=== PATIENT | female | born 1950 | race Caucasian/White ===

== ENCOUNTER 2017-06-09 17:18 | Emergency (ER) | payer MEDICARE, MEDICAID ==
[~2017-06-09] VITALS: Ht 162.6 cm; Wt 77.7 kg
[~2017-06-09 17:18] MED LIST: ASPI-1264 PO; PER10325T PO; WALKERFR
[2017-06-09] MEDS ORDERED: HYDROcodone/acetaminophen 10/325mg tab PO ONE (18:15)
[2017-06-09 18:30] VITALS: BP 145/86
== END 2017-06-09 18:31 | disposition home or self-care (01) ==
LOC: ER 17:18
DX: M25.511 Pain in right shoulder (principal); G89.29 Other chronic pain; Z98.890 Other specified postprocedural states; Z79.82 Long term (current) use of aspirin
CPT/HCPCS: 99284; A4565

== ENCOUNTER 2019-01-23 20:19 | Emergency (ER) | payer MEDICARE, MEDICAID ==
[~2019-01-23] VITALS: Ht 162.6 cm; Wt 78.2 kg
[~2019-01-23 20:19] MED LIST changes: -ASPI-1264 PO; +CELE-193 PO; -PER10325T PO; -WALKERFR
[2019-01-23 20:34] VITALS: BP 138/89
[2019-01-23] MEDS ORDERED: HYDR-4384 PO (21:49)
[2019-01-23] MEDS ORDERED: ketorolac trometh inj. 60 MG/2 ML VIAL IM ONE (21:50)
== END 2019-01-23 22:07 | disposition home or self-care (01) ==
LOC: ER 20:20
DX: M25.561 Pain in right knee (principal); G89.29 Other chronic pain; Z98.890 Other specified postprocedural states; Z79.899 Other long term (current) drug therapy; Z96.651 Presence of right artificial knee joint; W22.8XXA Striking against or struck by other objects, initial encounter; Y93.89 Activity, other specified; Y92.89 Other specified places as the place of occurrence of the external cause; Y99.8 Other external cause status
CPT/HCPCS: 73564; 96372; 99283; J1885

== ENCOUNTER 2019-09-24 13:18 | Emergency (ER) | payer MEDICARE, MEDICAID ==
[~2019-09-24] VITALS: Ht 162.6 cm; Wt 77.0 kg
[2019-09-24] MEDS ORDERED: HYDROcodone/acetaminophen 5mg/325mg tablet PO ONE (14:45)
[2019-09-24 15:12] VITALS: BP 142/76
== END 2019-09-24 15:14 | disposition home or self-care (01) ==
LOC: ER 13:19
DX: S00.11XA Contusion of right eyelid and periocular area, initial encounter (principal); R51 Headache; M25.561 Pain in right knee; M25.461 Effusion, right knee; M54.5 Low back pain; Z79.899 Other long term (current) drug therapy; Z98.890 Other specified postprocedural states; W01.198A Fall on same level from slipping, tripping and stumbling with subsequent striking against other object, initial encounter; Y92.017 Garden or yard in single-family (private) house as the place of occurrence of the external cause; Y93.89 Activity, other specified; Y99.8 Other external cause status
CPT/HCPCS: 29505; 70450; 70487; 72125; 73502; 73560; 99285

== ENCOUNTER 2019-10-24 23:39 | Emergency (ER) | payer MEDICARE, MEDICAID ==
[~2019-10-24] VITALS: Ht 162.6 cm; Wt 80.9 kg
[2019-10-25] MEDS ORDERED: normal saline 1000ml 1,000 ML IV ONE (00:36)
[2019-10-25] MEDS ORDERED: normal saline 1000ML IV soln IVB ONE (00:40)
[2019-10-25 01:16] LABS: BASOPHILS % (AUTO) 0.8 % (0-1); EOSINOPHILS # (AUTO) 0.1 X10'3 (0-0.9); EOSINOPHILS % (AUTO) 2.1 % (0-6); HEMATOCRIT 34.5 % (35.0-45.0); HEMOGLOBIN 11.7 g/dl (12.0-16.0); LYMPHOCYTES # (AUTO) 1.7 X10'3 (1.1-4.8); LYMPHOCYTES % (AUTO) 31.4 % (21-51); MEAN CORPUSCULAR HEMOGLOBIN 29.6 PG (27.0-31.0); MEAN CORPUSCULAR HGB CONC 33.9 g/dL (33.0-36.5); MEAN CORPUSCULAR VOLUME 87.3 FL (78-98); MEAN PLATELET VOLUME 6.5 FL (7.4-10.4); MONOCYTES # (AUTO) 0.6 X10'3 (0-0.9); MONOCYTES % (AUTO) 10.6 % (2-12); NEUTROPHILS % (AUTO) 55.1 % (42-75); PLATELET COUNT 270 X10'3 (140-440); RED BLOOD COUNT 3.95 X10'6 (4.20-5.60); RED CELL DISTRIBUTION WIDTH 14.1 % (11.5-14.5); WHITE BLOOD COUNT 5.4 X10'3 (4.5-11.0)
[2019-10-25 01:31] LABS: ALANINE AMINOTRANSFERASE 18 U/L (12-78); ALBUMIN 3.7 G/DL (3.4-5.0); ALBUMIN/GLOBULIN RATIO 1.2 (1.1-1.5); ALKALINE PHOSPHATASE 89 IU/L (46-116); ANION GAP 7 (8-16); ASPARTATE AMINO TRANSFERASE 17 U/L (10-37); BILIRUBIN,TOTAL 0.2 MG/DL (0.1-1.0); BLOOD UREA NITROGEN 24 MG/DL (7-18); BUN/CREATININE RATIO 22.2 (6.6-38.0); CALCIUM 8.5 MG/DL (8.5-10.1); CHLORIDE 110 MMOL/L (99-107); CREATININE 1.08 MG/DL (0.40-0.90); GLUCOSE 105 MG/DL (70-104); POTASSIUM 3.4 MMOL/L (3.5-5.1); SODIUM 145 MMOL/L (135-145); TOTAL CARBON DIOXIDE 28.4 MMOL/L (24-32); TOTAL PROTEIN 6.9 G/DL (6.4-8.2); eGFR 50 ML/MIN
[2019-10-25] MEDS ORDERED: ciprofloxacin 250mg tablet PO ONE (02:05)
[2019-10-25] MEDS ORDERED: diphenoxylate/atropine tablet (Lomotil) PO ONE (02:45)
[2019-10-25 02:51] VITALS: BP 163/74
== END 2019-10-25 02:56 | disposition home or self-care (01) ==
LOC: ER 23:40
DX: R19.7 Diarrhea, unspecified (principal); R10.30 Lower abdominal pain, unspecified; R11.0 Nausea; G89.29 Other chronic pain; Z72.89 Other problems related to lifestyle; Z98.890 Other specified postprocedural states
CPT/HCPCS: 36415; 80053; 85025; 96360; 96361; 99283; J7030

== ENCOUNTER 2020-09-19 10:24 | Emergency (ER) | payer MEDICARE, MEDICAID ==
[~2020-09-19] VITALS: Ht 162.6 cm; Wt 71.0 kg
[~2020-09-19 10:24] MED LIST changes: +AMOX500C4 PO; +ASPI-1 PO; -CELE-193 PO; +IBUP-24 PO; +TRAM50TA2 PO; +TYL650S PO
--- NOTE | 2020-09-19 11:46 | NUR ---
c/o pain in left lower abdomen that started after doing ching at home on friday. pain is constant and flares up intermittently. pain 8/10 at present.
[2020-09-19 12:19] LABS: BASOPHILS % (AUTO) 0.3 % (0-1); EOSINOPHILS % (AUTO) 0.3 % (0-6); HEMATOCRIT 35.3 % (35.0-45.0); HEMOGLOBIN 11.9 g/dl (12.0-16.0); LYMPHOCYTES # (AUTO) 1.2 X10'3 (1.1-4.8); LYMPHOCYTES % (AUTO) 11.2 % (21-51); MEAN CORPUSCULAR HEMOGLOBIN 28.9 PG (27.0-31.0); MEAN CORPUSCULAR HGB CONC 33.7 g/dL (33.0-36.5); MEAN CORPUSCULAR VOLUME 85.8 FL (78-98); MONOCYTES # (AUTO) 0.8 X10'3 (0-0.9); MONOCYTES % (AUTO) 7.6 % (2-12); NEUTROPHILS # (AUTO) 8.7 X10'3 (1.8-7.7); NEUTROPHILS % (AUTO) 80.6 % (42-75); PLATELET COUNT 297 X10'3 (140-440); RED BLOOD COUNT 4.12 X10'6 (4.20-5.60); WHITE BLOOD COUNT 10.8 X10'3 (4.5-11.0)
[2020-09-19 12:33] LABS: ALANINE AMINOTRANSFERASE 24 U/L (12-78); ALBUMIN 3.8 G/DL (3.4-5.0); ALBUMIN/GLOBULIN RATIO 1.1 (1.1-1.5); ALKALINE PHOSPHATASE 96 IU/L (46-116); ANION GAP 11 (8-16); ASPARTATE AMINO TRANSFERASE 18 U/L (10-37); BLOOD UREA NITROGEN 14 MG/DL (7-18); BUN/CREATININE RATIO 15.9 (6.6-38.0); CHLORIDE 105 MMOL/L (99-107); CREATININE 0.88 MG/DL (0.40-0.90); GLUCOSE 97 MG/DL (70-104); LIPASE 101 U/L (73-393); POTASSIUM 3.5 MMOL/L (3.5-5.1); SODIUM 143 MMOL/L (135-145); TOTAL CARBON DIOXIDE 26.7 MMOL/L (24-32); TOTAL PROTEIN 7.4 G/DL (6.4-8.2); eGFR 64 ML/MIN
[2020-09-19 12:54] LABS: CLARITY,URINE CLEAR (Clear); COLOR,URINE YELLOW (Yellow); GLUCOSE, URINE NEGATIVE (Neg); KETONES,URINE TRACE mg/dl (Neg); LEUKOCYTE ESTERASE ,URINE NEGATIVE (Neg); NITRITES, URINE NEGATIVE (Neg); OCCULT BLOOD,URINE NEGATIVE (Neg); PROTEIN,URINE TRACE mg/dl (Neg); UROBILINOGEN,URINE 0.2 E.U/dL (0.2-1.0)
[2020-09-19 12:59] LABS: UA COLLECTION TYPE CLN CATCH MIDSTREAM
[2020-09-19 13:00] LABS: RBC,URINE NONE SEEN /HPF (0-2)
[2020-09-19 13:01] LABS: BACTERIA,URINE FEW /HPF (Neg); MUCUS STRANDS FEW /LPF (Neg); SQUAMOUS EPITHELIAL CELL,UR FEW /LPF (FEW)
[2020-09-19] MEDS ORDERED: iohexol 300mg/ml 100ml inj. ONE (13:01)
[2020-09-19] MEDS ORDERED: ondansetron/PF 4mg/2ml inj IV ONE (13:45)
[2020-09-19] MEDS ORDERED: morphine 4 MG/ML inj SYRINge IV ONE (13:45)
[2020-09-19] MEDS ORDERED: AMOX-422 PO (13:46)
[2020-09-19] MEDS ORDERED: ACET-1025 PO (13:46)
[2020-09-19] MEDS ORDERED: METR-159 PO (13:46)
[2020-09-19 14:28] VITALS: BP 147/83
== END 2020-09-19 14:31 | disposition home or self-care (01) ==
LOC: ER 10:24
DX: K57.92 Diverticulitis of intestine, part unspecified, without perforation or abscess without bleeding (principal); N39.0 Urinary tract infection, site not specified; G89.29 Other chronic pain; Z79.2 Long term (current) use of antibiotics; Z79.899 Other long term (current) drug therapy; Z98.890 Other specified postprocedural states; Z72.89 Other problems related to lifestyle
CPT/HCPCS: 36415; 74177; 80053; 81001; 83605; 83690; 85025; 87088; 96374; 96375; 99285; J2270; J2405; Q9967

== ENCOUNTER 2020-12-02 06:57 | Emergency (ER) | payer MEDICARE, MEDICAID ==
[~2020-12-02] VITALS: Ht 162.6 cm; Wt 80.9 kg
[2020-12-02 07:10] VITALS: BP 154/84
[2020-12-02] MEDS ORDERED: ketorolac tromethamine 15mg/ml inj. IM ONE (09:10)
== END 2020-12-02 11:07 | disposition home or self-care (01) ==
LOC: ER 06:58
DX: M25.561 Pain in right knee (principal); M25.531 Pain in right wrist; M25.552 Pain in left hip; G89.29 Other chronic pain; Z98.890 Other specified postprocedural states; Z72.89 Other problems related to lifestyle; Z79.2 Long term (current) use of antibiotics; Z79.82 Long term (current) use of aspirin; Z79.899 Other long term (current) drug therapy; W19.XXXA Unspecified fall, initial encounter; Y93.89 Activity, other specified; Y92.89 Other specified places as the place of occurrence of the external cause; Y99.8 Other external cause status
CPT/HCPCS: 29125; 73110; 73502; 73564; 96372; 99284; J1885

== ENCOUNTER 2021-03-27 12:44 | Emergency (ER) | payer MEDICARE, MEDICAID ==
[~2021-03-27] VITALS: Ht 162.6 cm; Wt 81.0 kg
[2021-03-27 13:19] LABS: BASOPHILS # (AUTO) 0.1 X10'3 (0-0.2); BASOPHILS % (AUTO) 0.9 % (0-1); EOSINOPHILS # (AUTO) 0.1 X10'3 (0-0.9); EOSINOPHILS % (AUTO) 1.2 % (0-6); HEMATOCRIT 38.9 % (35.0-45.0); HEMOGLOBIN 13.1 g/dl (12.0-16.0); LYMPHOCYTES # (AUTO) 1.3 X10'3 (1.1-4.8); LYMPHOCYTES % (AUTO) 13.5 % (21-51); MEAN CORPUSCULAR HEMOGLOBIN 28.6 PG (27.0-31.0); MEAN CORPUSCULAR HGB CONC 33.6 g/dL (33.0-36.5); MEAN CORPUSCULAR VOLUME 85.1 FL (78-98); MEAN PLATELET VOLUME 6.1 FL (7.4-10.4); MONOCYTES # (AUTO) 0.5 X10'3 (0-0.9); MONOCYTES % (AUTO) 5.6 % (2-12); NEUTROPHILS # (AUTO) 7.5 X10'3 (1.8-7.7); NEUTROPHILS % (AUTO) 78.8 % (42-75); PLATELET COUNT 374 X10'3 (140-440); RED BLOOD COUNT 4.57 X10'6 (4.20-5.60); RED CELL DISTRIBUTION WIDTH 13.6 % (11.5-14.5); WHITE BLOOD COUNT 9.5 X10'3 (4.5-11.0)
[2021-03-27 13:34] LABS: ALANINE AMINOTRANSFERASE 28 U/L (12-78); ALKALINE PHOSPHATASE 122 IU/L (46-116); ANION GAP 11 (8-16); ASPARTATE AMINO TRANSFERASE 21 U/L (10-37); BILIRUBIN,TOTAL 0.5 MG/DL (0.1-1.0); BLOOD UREA NITROGEN 10 MG/DL (7-18); BUN/CREATININE RATIO 10.2 (6.6-38.0); CALCIUM 9.2 MG/DL (8.5-10.1); CHLORIDE 104 MMOL/L (99-107); CREATININE 0.98 MG/DL (0.40-0.90); GLUCOSE 125 MG/DL (70-104); POTASSIUM 3.8 MMOL/L (3.5-5.1); SODIUM 142 MMOL/L (135-145); TOTAL CARBON DIOXIDE 27.4 MMOL/L (24-32); eGFR 56 ML/MIN
--- NOTE | 2021-03-27 19:51 | NUR ---
PT ROOMED IN FAST TRACK 3
--- NOTE | 2021-03-27 19:59 | NUR ---
PT REPORTS HER CHEST TIGHTNESS HAS IMPROVED. BELIEVES HER CHEST PAIN HAS MORE TO DO WITH INCREASED COUGH SHE HAS HAD RECENTLY.
--- NOTE | 2021-03-27 20:33 | NUR ---
ROUNDED ON PT. PT HAS NO COMPLAINTS. SHE AMBULATED TO RESTROOM
--- NOTE | 2021-03-27 21:47 | NUR ---
ROUNDED ON PT. NOTES HEADACHE BUT NO OTHER COMPLAINTS AT PRESENT.
[2021-03-27 21:50] LABS: D-DIMER 0.53 MG/L FEU (0-0.50)
--- NOTE | 2021-03-27 22:04 | NUR ---
ROUNDED ON PT. NO OTHER COMPLAINTS AT PRESENT.
[2021-03-27] MEDS ORDERED: BENZ-38 PO (22:13)
[2021-03-27] MEDS ORDERED: AZIT-103 PO (22:13)
[2021-03-27 22:51] VITALS: BP 168/88
== END 2021-03-27 22:55 | disposition home or self-care (01) ==
LOC: ER 12:45
DX: J06.9 Acute upper respiratory infection, unspecified (principal); Z20.822 Contact with and (suspected) exposure to COVID-19; G89.29 Other chronic pain; Z72.89 Other problems related to lifestyle; Z79.2 Long term (current) use of antibiotics; Z79.899 Other long term (current) drug therapy; Z86.16 Personal history of COVID-19; Z79.82 Long term (current) use of aspirin
CPT/HCPCS: 36415; 71045; 80053; 83880; 84484; 85025; 85379; 87635; 93005; 99285; C9803

== ENCOUNTER 2021-11-04 09:22 | Emergency (ER) | payer MEDICARE, MEDICAID ==
[~2021-11-04] VITALS: Ht 162.6 cm; Wt 85.0 kg
[2021-11-04 09:34] VITALS: BP 153/81
[2021-11-04] MEDS ORDERED: fluconazole 150mg tablet PO ONE (10:30)
[2021-11-04] MEDS ORDERED: ondansetron 4mg rapidly disintigrating tab PO ONE (10:30)
[2021-11-04] MEDS ORDERED: CLOT15CR10 TOP (12:07)
== END 2021-11-04 12:21 | disposition home or self-care (01) ==
LOC: ER 09:23
DX: B37.2 Candidiasis of skin and nail (principal); Z20.822 Contact with and (suspected) exposure to COVID-19; G89.29 Other chronic pain; Z79.899 Other long term (current) drug therapy; Z79.82 Long term (current) use of aspirin
CPT/HCPCS: 87502; 87503; 87635; 99283; C9803; 99282

== ENCOUNTER 2022-03-05 12:39 | Emergency (ER) | payer MEDICARE, MEDICAID ==
[~2022-03-05] VITALS: Ht 162.6 cm; Wt 78.2 kg
[~2022-03-05 12:39] MED LIST changes: +CLOT15CR10 TOP
[2022-03-05 13:57] VITALS: BP 157/84
[2022-03-05] MEDS ORDERED: ipratropium/albuterol 3ml nebule NEB ONE (15:10)
[2022-03-05] MEDS ORDERED: PRED20TA PO (16:07)
[2022-03-05] MEDS ORDERED: ALBU6.7H14 INH (16:07)
[2022-03-05] MEDS ORDERED: BENZ-38 PO (16:07)
== END 2022-03-05 16:58 | disposition home or self-care (01) ==
LOC: ER 12:40
DX: J06.9 Acute upper respiratory infection, unspecified (principal); Z20.822 Contact with and (suspected) exposure to COVID-19; G89.29 Other chronic pain
CPT/HCPCS: 36415; 71045; 87635; 94640; 99284; C9803; 94760

== ENCOUNTER 2024-01-28 14:48 | Emergency (ER) | payer MEDICARE, MEDICAID ==
[~2024-01-28] VITALS: Ht 162.6 cm; Wt 74.0 kg
[~2024-01-28 14:48] MED LIST changes: +ALBU6.7H14 INH
[2024-01-28 16:07] VITALS: BP 149/90; PULSE 68; RESP 18; TEMP 98.5; O2SAT 98
== END 2024-01-28 16:08 | disposition home or self-care (01) ==
LOC: ER 14:48
DX: S70.02XA Contusion of left hip, initial encounter (principal); S60.222A Contusion of left hand, initial encounter; G89.29 Other chronic pain; Z79.899 Other long term (current) drug therapy; Z79.82 Long term (current) use of aspirin; Z72.89 Other problems related to lifestyle; Z98.890 Other specified postprocedural states; W18.39XA Other fall on same level, initial encounter; Y93.89 Activity, other specified; Y92.89 Other specified places as the place of occurrence of the external cause; Y99.8 Other external cause status
CPT/HCPCS: 73130; 73502; 99284

== ENCOUNTER 2024-11-22 11:11 | Emergency (ER) | payer MEDICARE, MEDICAID ==
[~2024-11-22] VITALS: Ht 162.6 cm; Wt 68.9 kg
[2024-11-22 11:20] VITALS: TEMP 97.8
--- NOTE | 2024-11-22 15:41 | Physician Documentation ---
History of Present Illness ~ Chief Complaint: Headache Stated Complaint: PAIN IN HEAD/DIZZINESS X1 MONTH Time Seen by MD: 15:23 Primary Medical Doctor: Maritza Kolb HPI 74-year-old female presenting for a headache that has been gradually worsening for the past month. Patient states that the headache is mainly over the top of her head but radiates to the rest of her head as well. Additionally she states that she has noticed some increased fogginess in her thinking and has been confused at times. She reports that her vision has been slightly blurry and this will wax and wane. The headache as mentioned has been constant but will fluctuate in intensity. Currently she rates it at about a 5/10 but states that it does get as bad as a 9/10 on intensity. She reports that she also has some stiffness in her neck and some unsteadiness on her feet. Denies any chest pain, shortness of breath or any other associated symptoms. Medication Reconciliation Allergies: Coded Allergies: No Known Allergies (Unverified , 01/28/24) Scheduled Albuterol Sulfate (Proventil Hfa), 2 PUFFS INH Q6H Amoxicillin (Amoxicillin), 1 TAB PO TID, (Reported) Aspirin (Aspirin), 325 MG PO DAILY Clotrimazole (Clotrimazole), 1 APPLIC TOP Q8H Tramadol HCl (Tramadol HCl), 2 TABLET PO HS, (Reported) Scheduled PRN Acetaminophen (Tylenol), 650 MG PO TID PRN for pain, (Reported) Ibuprofen (Advil), 800 MG PO TIDWM PRN for pain, (Reported) Past Medical History Past Medical History: Diverticulosis, *MUSCULOSKELETAL*, Chronic Pain, *INFECTIOUS DZ*, *CANCER* Past Surgical History: orthopedic surgeries Other Past Surgical History: total right knee Alcohol Use: Occasionally Drug Use: none Lives with: Family Lives In: Home Occupation: retired Physical Exam Vital Signs: Temperature: 97.8, Source: Temporal, Heart Rate: 60, Respiratory Rate: 16, BP: 162/82, Pulse Oximetry: 96, Weight: 68.900 Oxygen Flow Rate: 0 Physical Exam I have reviewed the triage vitals. CONST: Well developed and well nourished. In no acute distress HENT: Head Atraumatic EYES: Pupils are equal, round and reactive to light. Normal conjunctiva NECK: Normal range of motion. Supple. CARDIO: Normal rate and regular rhythm. No murmurs, rubs, or gallops. S1, S2. PULM/CHEST: No respiratory distress. Lungs clear to auscultation. No wheeze ABD: Soft and nontender. Nondistended. Bowel sounds normal. No guarding. : Exam deferred MSK: No edema. No deformity. NEURO: Alert and oriented to person, place and time. Moving all extremities SKIN: Warm and dry. PSYCH: Normal mood and affect. Good eye contact. Progress Results/Orders Results/Orders Orders - MENDEZ CRAMER MD Electrocardiogram (11/22/24 15:37) Culture Blood (11/22/24 15:37) Chest,Single View (11/22/24 16:00) Ct Head (11/22/24 16:26) Cta Neck/Head (11/22/24 16:27) Completed Orders - MENDEZ CRAMER MD Acetaminophen 325mg Tablet (Tylenol Tabl (11/22/24 14:25) Electrocardiogram (11/22/24 15:37) Cbc/Diff (11/22/24 15:37) CK (11/22/24 15:37) CKMB (11/22/24 15:37) Pt Inr (11/22/24 15:37) PTT (11/22/24 15:37) Urinalysis, Cult If Indicated (11/22/24 15:37) Chest,Single View (11/22/24 16:00) MG (11/22/24 15:37) Normal Saline 1000ml (0.9% Sodium Chlori (11/22/24 15:40) Ct Head (11/22/24 16:26) CMP (11/22/24 15:37) Hs Troponin I W Calculations (11/22/24 15:37) Lacticsepsis (11/22/24 15:37) Cta Neck/Head (11/22/24 16:27) Metoclopramide Inj (Reglan Inj) (11/22/24 15:40) Iohexol 350mg/Ml 100ml (Omnipaque 350mg/ (11/22/24 16:00) Hs Troponin I W Calculations (11/22/24 17:47) Vital Signs 11/22/24 11/22/24 11/22/2425 11:20 12:53 14:00 16:45 Temp 97.8 Pulse 63 60 60 64 Resp 18 16 18 B/P (MAP) 153/82 159/83 (108) 162/82 (108) 150/77 (101) Pulse Ox 98 99 96 99 O2 Flow Rate 0 0 0 11/22/24 11/22/24 16:46 18:27 Pulse 78 Resp 18 18 B/P (MAP) 167/88 Pulse Ox 99 Laboratory Tests Test 11/22/24 15:47 11/22/24 16:04 11/22/24 17:50 White Blood Count 6.5 Red Blood Count 4.62 Hemoglobin 13.0 Hematocrit 38.4 Mean Corpuscular Volume 83.2 Mean Corpuscular Hemoglobin 28.1 Mean Corpuscular Hemoglobin Concent 33.8 Red Cell Distribution Width 13.9 Platelet Count 302 Mean Platelet Volume 6.1 L Neutrophils (%) (Auto) 70.7 Lymphocytes (%) (Auto) 20.8 L Monocytes (%) (Auto) 6.6 Eosinophils (%) (Auto) 1.1 Basophils (%) (Auto) 0.8 Neutrophils # (Auto) 4.6 Lymphocytes # (Auto) 1.4 Monocytes # (Auto) 0.4 Eosinophils # (Auto) 0.1 Basophils # (Auto) 0.1 CBC Comment Prothrombin Time 10.4 INR International Normalized Ratio 1.0 Activated Partial Thromboplast Time 25 Coagulation Comments Sodium Level 140 Potassium Level 4.1 Chloride Level 105 Carbon Dioxide Level 26.9 Anion Gap 8 Blood Urea Nitrogen 19 H Creatinine 0.86 Estimated GFR/1.73 m2 65 BUN/Creatinine Ratio 22.1 H Glucose Level 86 Lactic Acid Level 0.6 Calcium Level 9.0 Magnesium Level 2.2 Total Bilirubin 0.7 Aspartate Amino Transf (AST/SGOT) 15 Alanine Aminotransferase (ALT/SGPT) 14 Alkaline Phosphatase 96 Total Creatine Kinase 68 Creatine Kinase MB 1.5 Creatine Kinase MB Relative Index Troponin I High Sensitivity 13 18 Total Protein 7.3 Albumin 3.9 Globulin 3.4 Albumin/Globulin Ratio 1.1 Chemistry Comments Urine Specimen Description Cln catch midstream Urine Color Yellow Urine Clarity Clear Urine pH 6.0 Urine Specific Thelma 1.010 Urine Protein Negative Urine Glucose (UA) Negative Urine Ketones Negative Urine Occult Blood Negative Urine Nitrite Negative Urine Bilirubin Negative Urine Urobilinogen 0.2 Urine Leukocyte Esterase Negative Urine Culture Indicated Not ind Volume Urine Centrifuged 10 ml Urine Comment Troponin I High Sens Percent Delta 38 Troponin I Hi Sens Absolute Change 5 Microbiology Date/Time Source Procedure Growth Status 11/22/24 16:04 Blood Blood Culture - Preliminary NEGATIVE (LESS THAN 24 HOURS) Resulted EKG/XRAY/CT/US/VASC/MRI EKG : Additional Comment EKG as interpreted by me indicating normal sinus rhythm with a rate of 77 beats per minute, normal axis, no ischemia Chest X-Ray : Additional Comments EXAM: DI CHEST,SINGLE VIEW Indication: weakness Technique: Single frontal view of the chest was obtained Comparison: CHEST,SINGLE VIEW on DOS: 03/05/22, CHEST,SINGLE VIEW on DOS: 03/27/21 FINDINGS: Lines and Tubes: None Lungs: No focal consolidation. Pleura: No effusion. No pneumothorax. Cardiomediastinal contours: Unremarkable Bones: No acute osseous abnormality. Status post right shoulder arthroplasty. IMPRESSION: No acute cardiopulmonary disease. : Impression EXAM: CT CTA NECK/HEAD DATE OF SERVICE: 11/22/2024 04:22 PM ORDERING PHYSICIAN: MENDEZ CRAMER REASON FOR EXAM: headache and confusion TECHNIQUE: CTA of the brain and neck was performed after the administration of contrast . Axial images of the head and neck are obtained. Coronal and sagittal images were then reformatted for review. MIP reformats were obtained and reviewed. COMPARISON: None FINDINGS: FINDINGS: The right common carotid artery demonstrates no high-grade stenosis. Right internal carotid artery demonstrates no high-grade stenosis. Right middle cerebral artery demonstrates no high-grade stenosis. The right anterior cerebral artery demonstrates no high-grade stenosis. The left common carotid artery demonstrates no high-grade stenosis. Left internal carotid artery demonstrates no high-grade stenosis. The left middle cerebral artery demonstrates no high-grade stenosis. The left anterior cerebral artery demonstrates no high-grade stenosis. The right vertebral artery demonstrates no high-grade stenosis. The left vertebral artery demonstrates no high-grade stenosis. Basilar artery demonstrates no high-grade stenosis. The bilateral posterior cerebral arteries demonstrate no high-grade stenosis. 1.7 cm right breast nodule. 2.2 cm right breast nodule. Left upper lobe2 calcified nodule 6 mm consistent with remote granulomatous disease. Moderate to advanced cervical degenerative disc disease. Right shoulder arthroplasty hardware. IMPRESSION: No large vessel high-grade stenosis. 1.7 cm and 2.2 cm right breast soft tissue nodules/masses. Recommend correlation with the myelography, breast ultrasound to evaluate for potential breast mass/neoplasm. Procedure: CT [facility] Study Date and Requested Time: 11/22/2024 04:17 PM History: headache Comparison: None Dose: CTDI: 53.31 mGy DLP: 1006.06 mGycm Technique: Multiplanar images obtained through the brain without intravenous contrast. Findings: Mild Diffuse brain atrophy. Mild chronic small vessel ischemic changes. No hemorrhages, masses, mass effect, midline shift, herniation or cytotoxic edema following a large vascular territory. No intra-axial or extra-axial fluid collections. No evidence of hydrocephalus. The basal cisterns are patent. The pituitary gland, sella and parasellar regions are unremarkable. The cerebellar tonsils are in normal position. The cerebellum is unremarkable. The orbits and globes are unremarkable. The paranasal sinuses and mastoids are clear. 7 mm sclerotic focus of the right anterior parietal calvarium which may represent a bone island with a blastic lesion not excluded. Impression: No evidence of acute intracranial abnormality. Medical Decision Making Additional Comment 74-year-old female presenting for a headache that has been ongoing for the past month. The patient shows no neurological symptoms. She has nonfocal appearing and her neurological exam is completely normal. Her lab workup is negative. We did perform a CT noncontrast as well as a CT angiogram of the head and neck which were both unremarkable as well. Patient was medicated with 1 L of IV normal fluids and also given 10 mg of IV Reglan which completely resolved her symptoms. I suspect that her headache may be due to a viral syndrome which should resolve with time. However given the long-term nature of his headache I believe she should have an MRI done as well to rule out any other pathology such as multiple sclerosis as she was complaining of some unsteadiness of gait and blurry vision as well. MRI can not be performed at this time however advised the patient to come back during normal business hours to have this done. She will return on Friday of this week to have the MRI done. In the meantime I advised her to drink plenty of fluids and ensure adequate rest. I also advised her to take ibuprofen or Tylenol as needed for the headache. Return to the ED sooner with any acutely worsening symptoms. Departure Disposition: 01 HOME / SELF CARE / HOMELESS Impression: Primary Impression: Headache Condition: Improved Discharge Instructions: Headache Additional Instructions: Monitor her symptoms. You may take ibuprofen or Tylenol as needed for pain. Please return on Friday morning at 5:30 a.m. for an MRI. Please return to the ED sooner for any acutely worsening symptoms. Referrals: NO PRIMARY CARE PROVIDER (PCP) Signature Scribe Signature: 1 Attestation: 1 MENDEZ CRAMER MD Nov 22, 2024 15:41
--- NOTE | 2024-11-22 15:49 | ELECTROCARDIOGRAPH REPORT ---
[facility] Test Date: 2024-11-22 Test Time: 15:47:09 Pat Name: [facility] Department: [facility] Patient ID: [id number] Room: Gender: F Facilities Engineering Manager: : 1950 Requested By: MENDEZ CRAMER Order Number: [id number] Reading MD: Dr. Antoine Dodge Measurements Intervals [place] Rate: 50 P: 67 MN: 192 QRS: 51 QRSD: 84 T: 48 QT: 453 QTc: 414 Interpretive Statements Sinus bradycardia Atrial premature complexes Electronically Signed On 11-22-2024 19:43:[address] Antoine Dodge Please click the below link to view image of tracing.
[2024-11-22 15:56] LABS: MEAN PLATELET VOLUME 6.1 FL (7.4-10.4); RED CELL DISTRIBUTION WIDTH 13.9 % (11.5-14.5)
[2024-11-22 16:21] LABS: LEUKOCYTE ESTERASE ,URINE NEGATIVE (Neg); NITRITES, URINE NEGATIVE (Neg); OCCULT BLOOD,URINE NEGATIVE (Neg)
[2024-11-22 16:24] LABS: CREATININE 0.86 MG/DL (0.40-0.90); TOTAL CARBON DIOXIDE 26.9 MMOL/L (24-32); eCRCL 50 ML/MIN; eGFR 65 ML/MIN
[2024-11-22 16:26] LABS: CREATINE KINASE MB 1.5 ng/ml (0.3-3.6)
[2024-11-22 16:31] LABS: UA COLLECTION TYPE CLN CATCH MIDSTREAM
[2024-11-22] MEDS: normal saline 1000ML IV soln IVB ONE (16:35)
[2024-11-22] MEDS: metoclopramide 5 mg/ml inj IV ONE (16:35)
--- NOTE | 2024-11-22 16:38 | RADIOLOGY REPORT ---
EXAM: DI CHEST,SINGLE VIEW Indication: weakness Technique: Single frontal view of the chest was obtained Comparison: CHEST,SINGLE VIEW on DOS: 03/05/22, CHEST,SINGLE VIEW on DOS: 03/27/21 FINDINGS: Lines and Tubes: None Lungs: No focal consolidation. Pleura: No effusion. No pneumothorax. Cardiomediastinal contours: Unremarkable Bones: No acute osseous abnormality. Status post right shoulder arthroplasty. IMPRESSION: No acute cardiopulmonary disease.
[2024-11-22 16:47] LABS: APTT 25 SECONDS (22-32); INR 1.0 INR
--- NOTE | 2024-11-22 16:58 | RADIOLOGY REPORT ---
Procedure: CT [facility] Study Date and Requested Time: 11/22/2024 04:17 PM History: headache Comparison: None Dose: CTDI: 53.31 mGy DLP: 1006.06 mGycm Technique: Multiplanar images obtained through the brain without intravenous contrast. Findings: Mild Diffuse brain atrophy. Mild chronic small vessel ischemic changes. No hemorrhages, masses, mass effect, midline shift, herniation or cytotoxic edema following a large v ascular territory. No intra-axial or extra-axial fluid collections. No evidence of hydrocephalus. The basal cisterns are patent. The pituitary gland, sella and parasellar regions are unremarkable. The cerebellar tonsils are in nor mal position. The cerebellum is unremarkable. The orbits and globes are unremarkable. The paranasal sinuses and mastoids are clear. 7 mm sclerotic focus of the right anterior parietal calvarium which may represent a bone island with a blastic lesio n not excluded. Impression: No evidence of acute intracranial abnormality.
--- NOTE | 2024-11-22 17:05 | RADIOLOGY REPORT ---
EXAM: CT CTA NECK/HEAD DATE OF SERVICE: 11/22/2024 04:22 PM ORDERING PHYSICIAN: MENDEZ CRAMER REASON FOR EXAM: headache and confusion TECHNIQUE: CTA of the brain and neck was performed after the administration of contrast . Axial imag es of the head and neck are obtained. Coronal and sagittal images were then reformatted for review. M IP reformats were obtained and reviewed. COMPARISON: None FINDINGS: FINDINGS: The right common carotid artery demonstrates no high-grade stenosis. Right internal carotid artery demonstrates no high-grade stenosis. Right middle cerebral artery demonstrates no high-grade stenosis. The right anterior cerebral artery demonstrates no high-grade stenosis. The left common carotid artery demonstrates no high-grade stenosis. Left internal carotid artery demonstrates no high-grade stenosis. The left middle cerebral artery demonstrates no high-grade stenosis. The left anterior cerebral artery demonstrates no high-grade stenosis. The right vertebral artery demonstrates no high-grade stenosis. The left vertebral artery demonstrates no high-grade stenosis. Basilar artery demonstrates no high-grade stenosis. The bilateral posterior cerebral arteries demonstrate no high-grade stenosis. 1.7 cm right breast nodule. 2.2 cm right breast nodule. Left upper lobe2 calcified nodule 6 mm consistent with remote granulomatous disease. Moderate to advanced cervical degenerative disc disease. Right shoulder arthroplasty hardware. IMPRESSION: No large vessel high-grade stenosis. 1.7 cm and 2.2 cm right breast soft tissue nodules/masses. Recommend correlation with the myelograph y, breast ultrasound to evaluate for potential breast mass/neoplasm.
[2024-11-22 18:27] VITALS: BP 167/88; PULSE 78; RESP 18; O2SAT 99
== END 2024-11-22 18:28 | disposition home or self-care (01) ==
LOC: ER 11:12
DX: R51.9 Headache, unspecified (principal); Z79.899 Other long term (current) drug therapy; Z72.89 Other problems related to lifestyle
CPT/HCPCS: 36415; 70450; 70496; 70498; 71045; 80053; 81003; 82550; 82553; 83605; 83735; 84484; 85025; 85610; 85730; 87040; 93005; 96361; 96374; 99285; J2765; J7030; Q9967

== ENCOUNTER 2024-11-26 04:50 | Emergency (ER) | payer MEDICARE, MEDICAID ==
[~2024-11-26] VITALS: Ht 162.6 cm; Wt 69.9 kg
[2024-11-26 05:05] VITALS: TEMP 97.8
--- NOTE | 2024-11-26 05:20 | Physician Documentation ---
History of Present Illness ~ Chief Complaint: See Chief Complaint Stated Complaint: REQUESTING MRI Time Seen by MD: 05:18 Primary Medical Doctor: RONALD KRAMER 74-year-old female who was seen by myself here in the ED three days ago for an ongoing headache that she has had for the past month returns for a brain MRI. Patient had a workup done with a CT and CTA on last visit which were unremarkable. I advised the patient that she can return today to get a brain MRI done. She reports that the headaches have continued and that [id number] medication does not work. In addition the patient has also had unsteadiness on her feet and occasional blurry vision that has been ongoing for the past month. Medication Reconciliation Allergies: Coded Allergies: No Known Allergies (Unverified , 01/28/24) Scheduled Albuterol Sulfate (Proventil Hfa), 2 PUFFS INH Q6H Amoxicillin (Amoxicillin), 1 TAB PO TID, (Reported) Aspirin (Aspirin), 325 MG PO DAILY Clotrimazole (Clotrimazole), 1 APPLIC TOP Q8H Tramadol HCl (Tramadol HCl), 2 TABLET PO HS, (Reported) Scheduled PRN Acetaminophen (Tylenol), 650 MG PO TID PRN for pain, (Reported) Ibuprofen (Advil), 800 MG PO TIDWM PRN for pain, (Reported) Past Medical History Past Medical History: Diverticulosis, *MUSCULOSKELETAL*, Chronic Pain, *INFECTIOUS DZ*, *CANCER* Past Surgical History: orthopedic surgeries Other Past Surgical History: total right knee Alcohol Use: Occasionally Drug Use: none Lives with: Family Lives In: Home Occupation: retired Physical Exam Vital Signs: Temperature: 97.8, Source: Temporal, Heart Rate: 63, Respiratory Rate: 18, BP: 146/78, Pulse Oximetry: 98, Weight: 69.900 Oxygen Flow Rate: 0 Physical Exam I have reviewed the triage vitals. CONST: Well developed and well nourished. In no acute distress HENT: Head Atraumatic EYES: Pupils are equal, round and reactive to light. Normal conjunctiva NECK: Normal range of motion. Supple. CARDIO: Normal rate and regular rhythm. No murmurs, rubs, or gallops. S1, S2. PULM/CHEST: No respiratory distress. Lungs clear to auscultation. No wheeze ABD: Soft and nontender. Nondistended. Bowel sounds normal. No guarding. : Exam deferred MSK: No edema. No deformity. NEURO: Alert and oriented to person, place and time. Moving all extremities SKIN: Warm and dry. PSYCH: Normal mood and affect. Good eye contact. Progress Results/Orders Results/Orders Orders - MENDEZ CRAMER MD Mri Head (11/26/24 ) Completed Orders - MENDEZ CRAMER MD Mri Head (11/26/24 ) Vital Signs 11/26/24 11:15 Pulse 63 Resp 16 B/P (MAP) 139/70 (93) Pulse Ox 99 O2 Flow Rate 0 EKG/XRAY/CT/US/VASC/MRI MRI : Impression PROCEDURE: MR MRI HEAD INDICATION: headaches w/ unsteadiness EXAM DATE: 11/26/2024 10:14 AM COMPARISON: CT CTA NECK/HEAD on DOS: 11/22/24, CT CT HEAD on DOS: 11/22/24 TECHNIQUE: MRI of the brain without intravenous contrast. FINDINGS: Diffusion weighted images of the brain demonstrate no evidence of acute infarction. There is no evidence of acute intracranial hemorrhage, extra-axial collection, mass effect, midline shift, herniation or hydrocephalus. The ventricles, sulci and cisterns appear age appropriate. Mild changes of chronic microvascular ischemic disease. There are no signal abnormalities on the susceptibility weighted sequences. The major vascular flow voids are present. The visualized paranasal sinuses and mastoid air cells are clear. The surrounding soft tissues and osseous structures are unremarkable. IMPRESSION: 1. No evidence of acute infarction, intracranial hemorrhage, mass effect or hydrocephalus. Mild changes of chronic microvascular ischemic disease. HS:Y Medical Decision Making Additional Comment MRI negative aside from chronic microvascular disease which is normal for age. Pt to follow up with PCP with results. Return to ED with worsening symptoms. Departure Disposition: HOME / SELF CARE / HOMELESS Impression: Primary Impression: Headache Condition: Stable Referrals: NO PRIMARY CARE PROVIDER (PCP) Signature Scribe Signature: 1 Attestation: 1 MENDEZ CRAMER MD Nov 26, 2024 05:20
--- NOTE | 2024-11-26 10:57 | RADIOLOGY REPORT ---
PROCEDURE: MR MRI HEAD INDICATION: headaches w/ unsteadiness EXAM DATE: 11/26/2024 10:14 AM COMPARISON: CT CTA NECK/HEAD on DOS: 11/22/24, CT CT HEAD on DOS: 11/22/24 TECHNIQUE: MRI of the brain without intravenous contrast. FINDINGS: Diffusion weighted images of the brain demonstrate no evidence of acute infarction. There is no evidence of acute intracranial hemorrhage, extra-axial collection, mass effect, midline s hift, herniation or hydrocephalus. The ventricles, sulci and cisterns appear age appropriate. Mild changes of chronic microvascular ischemic disease. There are no signal abnormalities on the susceptibility weighted sequences. The major vascular flow voids are present. The visualized paranasal sinuses and mastoid air cells are clear. The surrounding soft tissues and o sseous structures are unremarkable. IMPRESSION: 1. No evidence of acute infarction, intracranial hemorrhage, mass effect or hydrocephalus. Mild ace es of chronic microvascular ischemic disease. HS:Y
[2024-11-26 11:15] VITALS: BP 139/70; PULSE 63; RESP 16; O2SAT 99
== END 2024-11-26 12:29 | disposition left against medical advice (07) ==
LOC: ER 04:50
DX: R51.9 Headache, unspecified (principal); Z79.899 Other long term (current) drug therapy; Z79.82 Long term (current) use of aspirin; Z72.89 Other problems related to lifestyle
CPT/HCPCS: 70551; 99284